=== PATIENT | female | born 1975 | race African-American/Black ===

== ENCOUNTER 2018-07-10 19:17 | Outpatient (CLI) | payer OTHER ==
[2018-07-10 19:57] LABS: APPEARANCE,URINE SLIGHTLY-CLOUDY; BILIRUBIN,URINE NEGATIVE (NEGATIVE); GLUCOSE, URINE 50 mg/dL (NEGATIVE); KETONES,URINE NEGATIVE (NEGATIVE); LEUKOCYTE ESTERASE,URINE NEGATIVE (NEGATIVE); NITRITE,URINE NEGATIVE (NEGATIVE); PROTEIN,URINE 100 mg/dL (NEGATIVE); URINE SPECIFIC GRAVITY 1.029
[2018-07-10 20:00] LABS: COLOR,URINE YELLOW
[2018-07-10 20:13] LABS: URINE AMPHETAMINES SCREEN NEGATIVE; URINE BARBITURATES SCREEN NEGATIVE; URINE BENZODIAZEPINES SCREEN NEGATIVE; URINE COCAINE SCREEN NEGATIVE; URINE MARIJUANA (THC) SCREEN NEGATIVE; URINE METHADONE SCREEN NEGATIVE; URINE PHENCYCLIDINE SCREEN NEGATIVE
[2018-07-10] MEDS: RINGERS SOLUTION,LACTATED 1,000 ML IV PRN ×2 (21:52→21:55)
--- NOTE | 2018-07-10 22:04 | Non Stress Test Report ---
Non Stress Test Datetime Report Generated by CPN: 07/10/2018 22:04 DEMOGRAPHIC Test Number: 1 EGA NST: 35.4 INDICATION Indication for Study: Ordered by Provider MONITORING Monitor Explained: Monitor Explained; Test Explained; Patient Verbalized Understanding Time on Monitor: 07/10/2018 19:34 Time off Monitor: 07/10/2018 20:31 NST Duration: 57 NST INTERVENTIONS NST Interventions: PO Hydration; IV Fluids Physician Notified NST: Dr. Atwood BABY A: [id number] BABY A Movement : Present Contraction Frequency : irritibility [facility] Baseline : 140 Accelerations : 15X15 Decelerations : None Variability : Moderate 6-25bpm NST Review: Meets Criteria for Reactive NST NST Review and Verified By : DARCI Vivar NST Results: Reactive NST REPORT Report Trigger: Send Report
== END 2018-07-10 21:56 | disposition home or self-care (01) ==
LOC: LC 19:17
PROVIDERS: ATTEND Obstetrics & Gynecology Gynecology
DX: O47.1 False labor at or after 37 completed weeks of gestation (principal); Z3A.35 35 weeks gestation of pregnancy
CPT/HCPCS: 59025; 80307; 81001